=== PATIENT | male | born 1985 | race Caucasian/White ===

== ENCOUNTER 2016-10-13 21:25 | Emergency (ER) | payer OTHER ==
[2016-10-13 21:31] VITALS: BP 159/84; BMI 27.1
[2016-10-13] MEDS ORDERED: ASPIRIN PO ONE (21:45)
--- NOTE | 2016-10-13 21:53 | DR.GENAD ---
HPI - PCP Primary Care Physician: malaika - Complaint/Symptoms Chief Complaint Doctors Comments: Patient complains of his heart fluttering and beating fast for the past 14 hours. [place] drank four beers in the last two hours; then states he drank 1-3 beers about an hour ago. States he has had problems like this before but it usually does not last this long. He is complaining of pressure in the xiphoid area. States he has seen a ceramic designer and had a holter moniter but it did not show anything. He denies tobacco or drug usage. He denies fever, chills, cold, cough or any recent injury. States he is taking medicine for his stomach that he started the other day. Chief Complaint:: heart out of rhthym - Nurses notes reviewed Nurses Notes Review: Yes - Source History Provided: Patient - Mode of Arrival Mode of Arrival: Ambulatory - Timing Onset of Chief Complaint: 10/13/16 Came on: Suddenly - Duration Duration: Constant How lon Duration: Hours - Location Location: xiphoid pressure - Severity Severity: Mild - Modifying Factors Worsens:: nothing Improves:: nothing PMH - PMH Past Medical History: Yes Past Medical History: GERD Past Medical History Comment: hiatal hernia Past Surgical History: Yes Surgical History: Appendectomy, Cholecystectomy - Family History History of Family Medical Conditions: No - Social History Does patient currently use any type of tobacco product: No Have you used tobacco products in the last 12 months: No Type of Tobacco Use: None Does any household member use tobacco: No Alcohol Use: Occasionally Do you use any recreational Drugs:: No Lives With: Family Lives Where: Home - infectious screening In the last 2 months have you had wt loss of >10#?: NO Have you had fever, night sweats or hemotysis?: No Have you traveled outside the country in the last 6 months?: No Isolation: Standard ROS - Review of Systems Constitutional: No Symptoms Reported, Weakness. negative: See HPI, Chills, Diaphoresis, Fever, Malaise, Irritable, Fatigue, Loss of Appetite, Other Eyes: No Symptoms Reported. negative: See HPI, Eye Pain, Blurred Vision, Tearing, Discharge, Photophobia, Diplopia, Other ENTM: No Symptoms Reported. negative: See HPI, Ear Pain, Ear Discharge, Pulling on Ears, Hearing Loss, Nose Pain, Nose Discharge, Epistaxis, Nose Congestion, Mouth Pain, Mouth Swelling, Loose Teeth, Drooling, Throat Pain, Throat Swelling, Ear Foreign Body Respiratoy: No Symptoms Reported. negative: See HPI, Productive Cough, Non- Productive Cough, Moist Cough, Dry Cough, Hacking Cough, Barking Cough, Brassy Cough, Orthopnea, Short of Breath, Stridor, Wheezing, Hemoptysis, Other Cardiovascular: No Symptoms Reported, Chest Pain, Palpitations. negative: See HPI, Edema, Syncope, Cyanosis, Skin Mottling, Other Gastrointestinal/Abdominal: No Symptoms Reported. negative: See HPI, Abdominal Pain, Constipation, Diarrhea, Nausea, Vomiting, Food Intolerance, Other Genitourinary: No Symptoms Reported. negative: See HPI, Discharge, Dysuria, Frequency, Hematuria, Pain, Bleeding, Other Neurological: No Symptoms Reported Musculoskeletal: No Symptoms Reported Integumentary: No Symptoms Reported. negative: See HPI, Change in Color, Change in Hair/Nails, Dryness, Lesions, Lumps, Rash, Itching, Wound, Bruises, Juandice, Other Hematologic/Lymphatic: No Symptoms Reported Endocrine: No Symptoms Reported Psychiatric: No Symptoms Reported PE - Vital Signs Vitals: Temperature 98.7 F Pulse Rate 121 Respiratory Rate 16 Blood Pressure [Right Arm] 121/77 Blood Pressure 159/84 O2 Sat by Pulse Oximetry 100 - General Limitations: No Limitations General Appearance: Alert, In Distress (mild) - Head Head Exam: Normal Inspection, Atraumatic, Normocephalic - Eyes Eye exam: Normal Appearance, PERRL, EOMI. negative: Scleral Icterus, Conjunctival Injection, Nystagmus, Miosis, Mydrasis, Periorbital Swelling, Periorbital Tenderness, Other - ENT ENT Exam: Normal Exam, Normal Oropharynx, Normal External Ear Exam, Mucous Membranes Moist, TM's Normal Bilaterally External Ear Exam: Normal External Inspection TM/Canal Exam: Bilateral Normal Nose Exam: Normal Nose Exam Mouth Exam: Normal Inspection. negative: Drooling, Trismus, Lip Swelling, Tongue Elevation, Tongue Swelling, Laceration, Other Throat Exam: Normal Inspection - Neck Neck Exam: Normal Inspection, Full ROM, Trachea Midline. negative: Tenderness, Meningismus, Lymphadenopathy, Thyromegaly, Other - Chest Chest Inspection: Normal Inspection, Symmetric Chest Wall Rise - Respiratory Respiratory Exam: Normal Lung Sounds Bilat Respiratory Exam: Bilateral Clear to Auscultation - Cardiovascular Cardiovascular Exam: Regular Rate, Normal Rhythm, Tachycardia, Normal Heart Sounds - Abdominal Exam Abdominal Exam: Normal Inspection, Normal Bowel Sounds, Soft (bowels sounds high in the chest on the left side), Hyperactive Bowel Sounds Abdominal Tenderness: negative: RUQ, RLQ, LUQ, LLQ, Epigastrium, Suprapubic, Diffuse, Mild, Moderate, Severe, Other - Extremities Extremities Exam: Normal Inspection, Full ROM, Normal Capillary Refill. negative: Tenderness, Edema, Joint Swelling, Calf Tenderness, Other - Back Back Exam: Normal Inspection, Full ROM. negative: Tenderness, (R) CVA Tenderness, (L) CVA Tenderness, Muscle Spasm, Paraspinal Tenderness, Vertebral Tenderness, Rashes, (R) Sciatic Notch Tenderness, (L) Sciatic Notch Tendern, (R ) Straight Leg Raise, (L) Straight Leg Raise, Other - Neurologic Neurological Exam: Alert, Oriented X3, CN II-XII Intact, Normal Gait, Reflexes Normal - Psychiatric Psychiatric Exam: Normal Affect, Normal Mood. negative: Depressed, Agitated, Anxious, Flat Affect, Manic, Homicidal Ideation, Suicidal Ideation, Other - Skin Skin Exam: Warm, Dry, Intact, Normal Color ROR - Labs Reviewed Laboratory Results Reviewed?: Yes (All labs and x-ray results reviewed and discussed with patient and spouse) Result Diagrams: 10/13/16 22:05 10/13/16 22:05 Laboratory: WBC 8.7 X10^3/uL (3.6-10.0) 10/13/16 22:05 RBC 4.75 X10^6/uL (4.7-6.0) 10/13/16 22:05 Hgb 15.2 g/dL (13.5-18.0) 10/13/16 22:05 Hct 43.5 % (42.0-54.0) 10/13/16 22:05 MCV 91.4 fL (80.0-100.0) 10/13/16 22:05 MCH 32.1 pg (27.0-34.0) 10/13/16 22:05 MCHC 35.1 g/dL (33.0-35.0) H 10/13/16 22:05 RDW 12.6 % (11.6-16.5) 10/13/16 22:05 Plt Count 216 X10^3/uL (150.0-450.0) 10/13/16 22:05 MPV 10.0 fL (7.4-11.0) 10/13/16 22:05 Neut % 49.5 % (42.0-75.0) 10/13/16 22:05 Lymph % 42.3 % (21.0-51.0) 10/13/16 22:05 [place] % 6.0 % (0.0-13.0) 10/13/16 22:05 Eos % 1.4 % (0.9-2.9) 10/13/16 22:05 Baso % 0.8 % (0.2-1.0) 10/13/16 22:05 Neut # 4.3 x10^3/uL (2.2-4.8) 10/13/16 22:05 Lymph # 3.7 X10^3/uL (1.3-2.9) H 10/13/16 22:05 [place] # 0.5 x10^3/uL (0.3-0.8) 10/13/16 22:05 Eos # 0.1 x10^3/uL (0.0-0.2) 10/13/16 22:05 Baso # 0.1 X10^3/uL (0.0-0.1) 10/13/16 22:05 Absolute Nucleated RBC 0.1 /100WBC 10/13/16 22:05 INR Target Range - 10/13/16 22:05 INR 1.03 (0.8-1.3) 10/13/16 22:05 PTT 29.7 SECONDS (22.9-36.5) 10/13/16 22:05 PTT Comment - 10/13/16 22:05 D-Dimer < 100 ng/mL (0-400) 10/13/16 22:05 Sodium 136 mmol/L (136-145) 10/13/16 22:05 Corrected Sodium TNP 10/13/16 22:05 Potassium 3.7 mmol/L (3.5-5.1) 10/13/16 22:05 Chloride 101 mmol/L (98-107) 10/13/16 22:05 Carbon Dioxide 25.2 mmol/L (21-32) 10/13/16 22:05 BUN 11 mg/dL (7-18) 10/13/16 22:05 Creatinine 1.29 mg/dL (0.70-1.30) 10/13/16 22:05 Est GFR (MDRD) Af Amer > 60 (>60) 10/13/16 22:05 Est GFR (MDRD) Non-Af > 60 (>60) 10/13/16 22:05 Glucose 100 mg/dL (65-99) H 10/13/16 22:05 Calcium 8.8 mg/dL (8.5-10.1) 10/13/16 22:05 Corrected Calcium TNP 10/13/16 22:05 Magnesium 1.9 mg/dL (1.7-2.9) 10/13/16 22:05 Total Bilirubin 0.50 mg/dL (0.2-1.0) 10/13/16 22:05 AST 22 Units/L (15-37) 10/13/16 22:05 ALT 35 Units/L (12-78) 10/13/16 22:05 Alkaline Phosphatase 58 Units/L (46-116) 10/13/16 22:05 Creatine Kinase 130 Units/L (39-308) 10/13/16 22:05 CK-MB (CK-2) < 1.0 ng/mL (0-4.0) 10/13/16 22:05 CK/CKMB % Calc 0.8 % (<4) 10/13/16 22:05 Troponin I < 0.02 ng/mL (0-1.5) 10/13/16 22:05 Total Protein 7.8 g/dL (6.4-8.2) 10/13/16 22:05 Albumin 4.1 g/dL (3.4-5.0) 10/13/16 22:05 Globulin 3.7 g/dL (2.5-4.5) 10/13/16 22:05 Albumin/Globulin Ratio 1.1 Ratio (1.1-2.1) 10/13/16 22:05 Urine Opiates Screen Negative (NEG=<300) 10/13/16 22:27 Urine Methadone Screen Negative (NEG=<300) 10/13/16 22: Ur Barbiturates Screen Negative (NEG=<200) 10/13/16 22:27 Ur Phencyclidine Scrn Negative (NEG=<25) 10/13/16 22:27 Ur Amphetamines Screen Negative (NEG=<1000) 10/13/16 22:27 U Benzodiazepines Scrn Negative (NEG=<200) 10/13/16 22:27 Urine Cocaine Screen Negative (NEG=<300) 10/13/16 22:27 U Marijuana (THC) Screen Negative (NEG=<50) 10/13/16 22:27 Ethyl Alcohol mg/dL 43 mg/dL (0-19.9) H 10/13/16 22:05 H. pylori IgG Antibody Negative (NEGATIVE) 10/13/16 22:05 - XRAY XRAY Interpreted by: Radiologist (CXR: no acute cardiopulmonary changes noted) - EKG Rate: 103 [place]: Normal Rhythm: NSR, ST Block: None Hypertrophy: None ST: Nonsp - Diagnosis Discharge Problem: Palpitation, Tachycardia Alcohol intoxication Qualifiers: Complication of substance-induced condition: uncomplicated Qualified Code(s): F10.920 - Alcohol use, unspecified with intoxication, uncomplicated - Discharge Plan Disposition: HOME, SELF-CARE Condition: Stable - Follow ups/Referrals Follow ups/Referrals: Marcello Gill [Primary Care Provider] - 3 days - Instructions Instructions: Palpitations, [id number], Palpitations, Alcohol Intoxication, [id number], Sinus Tachycardia
[2016-10-13] MEDS ORDERED: ASPIRIN ONE (22:00)
[2016-10-13] MEDS ORDERED: NS 1000 ML 1,000 ML ONE (22:00)
[2016-10-13] MEDS ORDERED: NS 1000 ML 1,000 ML IV SCH (22:00)
[2016-10-13 22:24] LABS: BASOPHILS # (AUTO) 0.1 X10^3/uL (0.0-0.1); BASOPHILS % (AUTO) 0.8 % (0.2-1.0); EOSINOPHILS # (AUTO) 0.1 x10^3/uL (0.0-0.2); EOSINOPHILS % (AUTO) 1.4 % (0.9-2.9); HEMATOCRIT 43.5 % (42.0-54.0); HEMOGLOBIN 15.2 g/dL (13.5-18.0); LYMPHOCYTES # (AUTO) 3.7 X10^3/uL (1.3-2.9); LYMPHOCYTES % (AUTO) 42.3 % (21.0-51.0); MEAN CORPUSCULAR HEMOGLOBIN 32.1 pg (27.0-34.0); MEAN CORPUSCULAR HGB CONC 35.1 g/dL (33.0-35.0); MEAN CORPUSCULAR VOLUME 91.4 fL (80.0-100.0); MONOCYTES # (AUTO) 0.5 x10^3/uL (0.3-0.8); NEUTROPHILS # (AUTO) 4.3 x10^3/uL (2.2-4.8); NEUTROPHILS % (AUTO) 49.5 % (42.0-75.0); PLATELET COUNT 216 X10^3/uL (150.0-450.0); RED BLOOD COUNT 4.75 X10^6/uL (4.7-6.0); RED CELL DISTRIBUTION WIDTH 12.6 % (11.6-16.5); WHITE BLOOD COUNT 8.7 X10^3/uL (3.6-10.0)
--- NOTE | 2016-10-13 22:37 | RAD ---
Chest AP portable Indication: Chest pain. Comparison: February 02, 2015. Findings: There is no pneumothorax, effusion or consolidation. Heart size is normal. Impression: No acute chest process or change from the prior. Reported By:
[2016-10-13 22:39] LABS: BLOOD UREA NITROGEN 11 mg/dL (7-18); CALCIUM 8.8 mg/dL (8.5-10.1); CARBON DIOXIDE 25.2 mmol/L (21-32); CHLORIDE 101 mmol/L (98-107); CREATININE 1.29 mg/dL (0.70-1.30); GLUCOSE 100 mg/dL (65-99); SODIUM 136 mmol/L (136-145); TROPONIN I < 0.02 ng/mL (0-1.5); eGFR BLACK RACES > 60 (>60); eGFR NON BLACK RACES > 60 (>60)
[2016-10-13 22:43] LABS: ALANINE AMINOTRANSFERASE 35 Units/L (12-78); ALBUMIN 4.1 g/dL (3.4-5.0); ALKALINE PHOSPHATASE 58 Units/L (46-116); ASPARTATE AMINO TRANSFERASE 22 Units/L (15-37); BLOOD ALCOHOL 43 mg/dL (0-19.9); CKMB % 0.8 % (<4); CREATINE KINASE 130 Units/L (39-308); CREATINE KINASE MB < 1.0 ng/mL (0-4.0); MAGNESIUM 1.9 mg/dL (1.7-2.9); TOTAL PROTEIN 7.8 g/dL (6.4-8.2)
[2016-10-13 22:50] LABS: D DIMER < 100 ng/mL (0-400)
== END 2016-10-13 23:51 | disposition home or self-care (01) ==
LOC: ER 21:25
DX: R00.2 Palpitations (principal); R00.0 Tachycardia, unspecified; F10.920 Alcohol use, unspecified with intoxication, uncomplicated
CPT/HCPCS: 36415; 71010; 80053; 80307; 80320; 82550; 82553; 83735; 84484; 85025; 85378; 85610; 85730; 86677; 93005; 99283; A4222; G0434; G6040